=== PATIENT | female | born 1975 | race Caucasian/White ===

== ENCOUNTER 2016-11-07 14:29 | Outpatient (CLI) | payer MEDICAID ==
[~2016-11-07] VITALS: Ht 170.2 cm; Wt 79.0 kg
[2016-11-07 14:34] VITALS: Ht 170.2 cm; Wt 79.0 kg
[2016-11-07 14:35] VITALS: BP 121/76; PULSE 73; RESP 18
[2016-11-07] MEDS ORDERED: PRENAT PO (14:37)
[2016-11-07] MEDS ORDERED: FOLI-49 PO (14:37)
[2016-11-07] MEDS ORDERED: CALC600T11 PO (14:37)
[2016-11-07] MEDS ORDERED: FER325 PO (14:37)
--- NOTE | 2016-11-07 16:08 | RADRPT ---
PROCEDURE: Obstetrical ultrasound for biophysical profile CLINICAL INDICATION: Biophysical profile. . TECHNIQUE: Obstetrical ultrasound of the uterus for biophysical profile. Transabdominal views are obtained. COMPARISON: 11/04/2016 FINDINGS: Single intrauterine gestation. Presentation: Cephalic. Placenta: Fundal No evidence of placental abruption. No evidence of placenta previa. breathing movement = 2/2 tone = 2/2 motion = 2/2 TIM = 2/2 TIM = 11.7 cm heart rate: 154 beats per minute IMPRESSION: Single intrauterine gestation. Biophysical profile 10/11 RPTAT: AADD .Richi Kramer MD, MD Date Time Electronically viewed and signed by .Richi Kramer MD, on 11/07/2016 16:07 .B/
--- NOTE | 2016-11-07 16:29 | TRIAGE ---
OB Triage Datetime Report Generated by CPN: 11/07/2016 16:28 Datetime: 11/07/2016 16:00 Labor Evaluation Frequency: X2 Monitor Mode: External Duration (sec)2399: 50-60 Quality: Mild Pattern: Normal: <= 5 Contractions in 10 Minutes Resting Tone [place]: Relaxed Heart Rate FHR Baseline Rate: 125 Monitor Mode: External US FHR Baseline Changes: No Baseline Change Variability: Moderate 6-25 bpm Accelerations: 15X15 Decelerations: None Category: Category I Pain Assessment Pain Scale: 0 Pain Presence: None/Denies Pain Type: N/A Datetime: 11/07/2016 15:00 Labor Evaluation Frequency: 0 Monitor Mode: External Pattern: Normal: <= 5 Contractions in 10 Minutes Resting Tone [place]: Relaxed Heart Rate FHR Baseline Rate: 130 Monitor Mode: External US FHR Baseline Changes: No Baseline Change Variability: Moderate 6-25 bpm Accelerations: 15X15 Decelerations: None Category: Category I Pain Assessment Pain Scale: 0 Pain Presence: None/Denies Pain Type: N/A Datetime: 11/07/2016 14:33 Assessment Type: Triage Maternal Assessment Level of Consciousness: Fully Conscious DTR's/Clonus: DTRs 2+; No Clonus Headache: Denies Blurred Vision: No Respiratory Effort: Unlabored; Regular Rhythm Breath Sounds, Left: Clear and Equal Breath Sounds, Right: Clear and Equal Nausea/Vomiting: Denies RUQ Epigastric Pain: Denies Lower Extremities Edema: None Degree: None Upper Extremities Edema: None Degree: None Facial Edema: None Fall Risk Assessment History of Falling: (0) No Secondary Diagnosis: (0) No Ambulatory Aid: (0) Bedrest/Nurse Assist IV Therapy: (0) No Gait: (0) Normal/Bedrest/Immobile Mental Status: (0) Oriented to Own Ability Fall Score: 0 Fall Risk Score Definition: No Risk: No action required Datetime: 11/07/2016 14:31 Pain Assessment Pain Scale: 0 Pain Presence: None/Denies Pain Type: N/A Datetime: 11/07/2016 14:21 Time of Arrival: 11/07/2016 14:21 EGA: 36.3 Arrived By: Ambulatory Arrived From: Home Chief Complaint: PT PRESENTS TO TRIAGE FOR FOLLOW UP NST/BPP DUE TO DECELERATIONS Movement: Present Contractions: Denies/Absent Rupture of Membranes: Denies Vaginal Bleeding: None Vaginal Discharge: Denies Recent Sexual Intercouse: Denies Abdominal Trauma: Not Applicable Patient Complaints: None Additional Patient Complaints: PATIENT A1DM- PATIENT REPORTS LAST BLOOD SUGAR 103 POST LUNCH Time Provider Notified: 11/07/2016 14:42 Provider Notified: KIRSTIN Initial Plan: NST/CHRIS
--- NOTE | 2016-11-07 17:32 | QN ---
Documentation Comment ipu 30 weeks GDM vss exam wnl us wnl a/p iup 30 weeks GDM stable dc home NADINE SANTAMARIA MD Nov 07, 2016 17:32
== END 2016-11-07 16:24 | disposition home or self-care (01) ==
LOC: L-D 14:29 → OBT 14:29
PROVIDERS: ATTEND Obstetrics & Gynecology
DX: O24.419 Gestational diabetes mellitus in pregnancy, unspecified control (principal); Z3A.30 30 weeks gestation of pregnancy
CPT/HCPCS: 76818; Z7500; G0463

== ENCOUNTER 2016-11-29 08:00 | Inpatient (IN) | payer MEDICAID ==
[~2016-11-29] VITALS: Ht 165.1 cm; Wt 77.1 kg
[~2016-11-29 08:00] MED LIST: CALC600T24 PO; FER325 PO; FOLI-49 PO; PRENAT PO
[2016-11-29 08:49] VITALS: Ht 165.1 cm; Wt 77.1 kg
[2016-11-29 08:50] VITALS: BP 118/80; PULSE 79
[2016-11-29] MEDS ORDERED: HYDROCODONE/APAP (5/325) TAB PO PRN (09:00)
[2016-11-29] MEDS ORDERED: OXYTOCIN 30 UNITS/LR 500 ML IV SCH ×2 (09:00→19:30)
[2016-11-29] MEDS ORDERED: BUTORPHANOL 2 MG INJ IV PRN (09:00)
[2016-11-29] MEDS ORDERED: METHYLERGONOVINE 0.2 MG INJ IM PRN (09:00)
[2016-11-29] MEDS ORDERED: MISOPROSTOL 200 MCG TAB PR PRN (09:00)
[2016-11-29] MEDS ORDERED: IBUPROFEN 600 MG TAB PO PRN (09:00)
[2016-11-29] MEDS ORDERED: LACTATED RINGER'S 1,000 ML IV PRN (09:00)
[2016-11-29] MEDS ORDERED: LIDOCAINE 1% (MPF) 30 ML INJ INJ PRN (09:00)
[2016-11-29] MEDS ORDERED: OXYTOCIN 30 UNITS/LR 500 ML IV PRN (09:00)
[2016-11-29] MEDS ORDERED: CARBOPROST 250 MCG INJ IM PRN (09:00)
[2016-11-29 10:08] LABS: BASOPHILS % 0.5 % (0.0-2.0); EOSINOPHILS # 0.1 10^3/ul (0.0-0.5); HEMATOCRIT 43.4 % (37.0-47.0); HEMOGLOBIN 14.3 g/dl (12.0-16.0); LYMPHOCYTES # 1.4 10^3/ul (0.8-2.9); LYMPHOCYTES % 23.2 % (15.0-51.0); MEAN CORPUSCULAR HEMOGLOBIN 31.8 pg (29.0-33.0); MEAN CORPUSCULAR HGB CONC 32.9 g/dl (32.0-37.0); MEAN CORPUSCULAR VOLUME 96.4 fl (82.0-101.0); MEAN PLATELET VOLUME 11.3 fl (7.4-10.4); MONOCYTE # 0.6 10^3/ul (0.3-0.9); MONOCYTES % 10.3 % (0.0-11.0); NEUTROPHILS % 64.7 % (39.0-77.0); PLATELET COUNT 165 10^3/UL (140-415); RED CELL DISTRIBUTION WIDTH 12.8 % (11.5-14.5); WHITE BLOOD COUNT 6.2 10^3/ul (4.8-10.8)
[2016-11-29] MEDS: LACTATED RINGER'S 1,000 ML IV SCH ×4 (10:16→19:00)
[2016-11-29] MEDS: MISOPROSTOL 25 MCG CAPSULE PO SCH ×2 (10:17→14:11)
[2016-11-29 10:39] LABS: INR 0.91; PROTIME 12.3 Sec (12.2-14.2)
[2016-11-29 10:40] LABS: PARTIAL THROMBOPLASTIN TIME 29.5 Sec (25.0-35.0)
[2016-11-29] MEDS: DEXTROSE 5%-LR 1,000 ML IV SCH ×2 (11:08→20:30)
--- NOTE | 2016-11-29 12:08 | RADRPT ---
PROCEDURE: US OB. CLINICAL INDICATION: Size and dates , diabetes TECHNIQUE: Multiple sonographic images of the pelvis and gravid uterus were obtained. The images were reviewed on a PACS workstation. COMPARISON: US PELVIS 11/07/2016 FINDINGS: There is a single viable intrauterine gestation. Cardiac activity is present with 135 beats per min tyson. There is a vertex presentation. The placenta is posterior. There is no evidence for an abruption or placenta previa. There is a normal amount of amniotic fluid with an TIM = 9.7 cm. Measurements were made in order to determine age. The results are as follows: BPD =8.9 cm HC =32.9 cm AC =35.7 cm FL =7.3 cm Estimated gestational age of approximately 37 weeks and 5 days based on ultrasound measurements. Clinical age: 39 weeks and 4 days. The estimated date of delivery is 12/15/16, based on ultrasound measurements. The EFW = 3492 g, 45.6%, based on LMP age. RPTAT: AA IMPRESSION: Single viable intrauterine gestation of approximately 37 weeks and 5 days based on ultrasound measu rements. .Gustavo Boyce MD, MD Date Time Electronically viewed and signed by .Gustavo Boyce MD, on 11/29/2016 12:08 .S/
[2016-11-29 15:41] LABS: RAPID PLASMA REAGIN REACTIVE (NR)
--- NOTE | 2016-11-29 19:37 | HP ---
Date/Time of Note Date/Time of Note DATE: 11/29/16 TIME: 19:35 OB - History Hx of Present Chief Complaint: induction of labor Estimated Due Date: Dec 02, 2016 : 5 Para: 3 Spontaneous : 1 Therapeutic : 0 Care: Good Care Ultrasounds: Normal mid trimester US Obstetrical Complications: Gestational Diabetes Medical Complications: None Past Family/Social History * Past Medical, Surgical, Family and Obstetric Histories reviewed from chart. GBS Status: Negative OB Admission Exam Vital Signs Vital Signs Vital Signs Date Time Temp Pulse Resp B/P Pulse Ox O2 Delivery O2 Flow Rate FiO2 11/29/16 08:50 98.2 79 118/80 Physical Exam HEENT: WNL Heart: Rhythm Normal Lungs: Clear, Equal Abdomen: WNL Extremities: Normal Reflexes: Normal Cervical Dilatation: None Effacement: 25% Station: -2 Membranes: Intact Heart Rate: 130's Accelerations: Accelerations Present Decelerations: No Decelerations Varibility: Moderate Last 72 hourBlood Glucose Bedside Glucose - 72 Hours Test 11/29/16 12:00 11/29/16 14:03 11/29/16 16:02 11/29/16 17:57 Bedside Glucose 71mg/dL (70-220) 84mg/dL (70-220) 78mg/dL (70-220) 90mg/dL (70-220) Last 72 hours Lab Results CBC & BMP 11/29/16 09:00 OB Assessment/Plan Reason for admission: induction of labor Plan: Induction Induction Method: per Misoprostol Protocol ALEXANDRU FULTON MD Nov 29, 2016 19:37
[2016-11-30] MEDS: LACTATED RINGER'S 1,000 ML IV SCH ×6 (00:51→20:41)
[2016-11-30] MEDS: DEXTROSE 5%-LR 1,000 ML IV SCH ×3 (00:51→14:55)
[2016-11-30 04:35] LABS: BASOPHILS % 0.4 % (0.0-2.0); EOSINOPHILS % 0.4 % (0.0-7.0); HEMATOCRIT 41.9 % (37.0-47.0); HEMOGLOBIN 14.2 g/dl (12.0-16.0); LYMPHOCYTES # 1.4 10^3/ul (0.8-2.9); LYMPHOCYTES % 18.6 % (15.0-51.0); MEAN CORPUSCULAR HEMOGLOBIN 32.7 pg (29.0-33.0); MEAN CORPUSCULAR HGB CONC 33.9 g/dl (32.0-37.0); MEAN CORPUSCULAR VOLUME 96.5 fl (82.0-101.0); MEAN PLATELET VOLUME 10.3 fl (7.4-10.4); MONOCYTE # 0.6 10^3/ul (0.3-0.9); MONOCYTES % 8.2 % (0.0-11.0); NEUTROPHIL # 5.5 10^3/ul (1.6-7.5); PLATELET COUNT 150 10^3/UL (140-415); RED BLOOD COUNT 4.34 10^6/ul (4.20-5.40); RED CELL DISTRIBUTION WIDTH 12.5 % (11.5-14.5); WHITE BLOOD COUNT 7.6 10^3/ul (4.8-10.8)
[2016-11-30 04:56] LABS: ALBUMIN 3.1 g/dl (3.3-4.9); ALBUMIN/GLOBULIN RATIO 0.93; BILIRUBIN,INDIRECT 0.4 mg/dl (0-1.1); BILIRUBIN,TOTAL 0.4 mg/dl (0.2-1.3); CALCIUM 8.1 mg/dl (8.4-10.2); CREATININE 0.66 mg/dl (0.44-1.00); POTASSIUM 3.8 mmol/L (3.5-5.1); TOTAL PROTEIN 6.4 g/dl (6.1-8.1); URIC ACID 4.6 mg/dl (3.1-7.9)
[2016-11-30 07:27] LABS: ADD UMIC YES; UR ASCORBIC ACID NEGATIVE (NEGATIVE); UR BILIRUBIN (Dip) NEGATIVE (NEGATIVE); UR BLOOD (Dip) 3+ mg/dL (NEGATIVE); UR CLARITY SLIGHTLY CLOUDY (CLEAR); UR COLOR YELLOW (YELLOW); UR GLUCOSE (Dip) NEGATIVE (NEGATIVE); UR KETONES (Dip) NEGATIVE (NEGATIVE); UR LEUKOCYTE ESTERASE (Dip) 3+ Leu/ul (NEGATIVE); UR NITRITE (Dip) NEGATIVE (NEGATIVE); UR RBC 0 /HPF (0-5); UR SPECIFIC GRAVITY (Dip) 1.006 (1.003-1.030); UR SQUAMOUS EPITHELIAL CELL MODERATE /HPF (FEW); UR TOTAL PROTEIN (Dip) NEGATIVE (NEGATIVE); UR UROBILINOGEN (Dip) NEGATIVE (NEGATIVE)
--- NOTE | 2016-11-30 21:48 | LDN ---
Date/Time of Note Date/Time of Note DATE: 11/30/16 TIME: 21:42 Delivery Summary Weeks of Gestation 39 weeks Placenta Delivered: Spontaneously Meconium: none Episiotomy: No Perineal laceration: 1 Laceration repair: Second degree laceration repaired with 3-0 Vicryl Anesthesia type: Local Estimated blood loss: 200 Sponge & Needle done & correct: Yes All needle counts correct: Yes Any foreign bodies felt in the: No Problems: Delivery Information Sex Infant Sex: female Apgars 1 Minute: 8 5 Minute: 9 Suctioning Nose & mouth suctioned at evaristo: Yes Delee suction performed: No Umbilical Cord Umbilical cord with: 3 Vessels Cord presentations: no nuchal cord Cord Blood was obtained: Yes Mother & Baby Disposition Disposition Mom & Baby to Maternity; Good: Yes ALEXANDRU FULTON MD Nov 30, 2016 21:48
[2016-11-30 22:15] VITALS: BP 137/85; PULSE 76; RESP 18
[2016-11-30] MEDS ORDERED: BENZOCAINE 20% 56 ML SPRAY TOP PRN (23:00)
[2016-11-30] MEDS ORDERED: OXYTOCIN 30 UNITS/LR 500 ML IV PRN (23:00)
[2016-11-30] MEDS ORDERED: HYDROCODONE/APAP (5/325) TAB PO PRN (23:00)
[2016-11-30] MEDS ORDERED: WITCH HAZEL/GLYCERIN PAD PR PRN (23:00)
[2016-11-30] MEDS ORDERED: DIBUCAINE 1% 30 GM OINT PR PRN (23:00)
[2016-11-30] MEDS ORDERED: ACETAMINOPHEN 325 MG TAB PO PRN (23:00)
[2016-11-30] MEDS ORDERED: MISOPROSTOL 200 MCG TAB PR PRN (23:00)
[2016-11-30] MEDS ORDERED: CARBOPROST 250 MCG INJ IM PRN (23:00)
[2016-11-30] MEDS ORDERED: METHYLERGONOVINE 0.2 MG INJ IM PRN (23:00)
[2016-11-30] MEDS: IBUPROFEN 600 MG TAB PO SCH (23:18)
[2016-11-30 23:48] VITALS: BP 117/70; PULSE 85; RESP 18
[2016-11-30] MEDS: LACTATED RINGER'S 1,000 ML IV* SCH (23:56)
[2016-12-01 03:51] VITALS: BP 115/66; PULSE 80; RESP 18
[2016-12-01] MEDS: IBUPROFEN 600 MG TAB PO SCH ×3 (05:40→17:56)
[2016-12-01] MEDS: LACTATED RINGER'S 1,000 ML IV* SCH ×2 (06:43→14:43)
[2016-12-01 08:00] VITALS: BP 103/65; PULSE 65; RESP 16
[2016-12-01] MEDS ORDERED: INFLUENZA VIRUS VACCINE 0.5 ML (DISPENSING) IM* ONE (09:00)
[2016-12-01] MEDS: SENNA/DOCUSATE NA (8.6MG/50MG) TAB PO SCH ×2 (10:00→22:01)
[2016-12-01 10:23] LABS: BASOPHILS % 0.2 % (0.0-2.0); EOSINOPHILS # 0.1 10^3/ul (0.0-0.5); EOSINOPHILS % 0.4 % (0.0-7.0); HEMATOCRIT 37.9 % (37.0-47.0); HEMOGLOBIN 12.7 g/dl (12.0-16.0); LYMPHOCYTES # 1.4 10^3/ul (0.8-2.9); LYMPHOCYTES % 10.4 % (15.0-51.0); MEAN CORPUSCULAR HEMOGLOBIN 32.3 pg (29.0-33.0); MEAN CORPUSCULAR HGB CONC 33.5 g/dl (32.0-37.0); MEAN CORPUSCULAR VOLUME 96.4 fl (82.0-101.0); MEAN PLATELET VOLUME 10.9 fl (7.4-10.4); MONOCYTE # 0.9 10^3/ul (0.3-0.9); MONOCYTES % 6.9 % (0.0-11.0); NEUTROPHIL # 10.6 10^3/ul (1.6-7.5); NEUTROPHILS % 81.8 % (39.0-77.0); PLATELET COUNT 145 10^3/UL (140-415); RED BLOOD COUNT 3.93 10^6/ul (4.20-5.40); RED CELL DISTRIBUTION WIDTH 12.9 % (11.5-14.5); WHITE BLOOD COUNT 12.9 10^3/ul (4.8-10.8)
[2016-12-01 12:00] VITALS: BP 110/71; RESP 16
[2016-12-01 16:00] VITALS: BP 129/55; PULSE 76; RESP 16
--- NOTE | 2016-12-01 19:44 | DS ---
Date/Time of Note Date/Time of Note DATE: 12/01/16 TIME: 19:44 Obstetrical Discharge Record Final Diagnosis Final Diagnosis: Term delivered Vaginal Delivery Obstetrical Delivery: Spontaneous Complications Gestational Diabetes Induction: Yes Condition on Discharge Physical Assessment Voiding: Yes Bowel Movement: Yes Breast: Soft, non-tender, Filling Fundus: Firm Calf Tenderness: No Patient Condition: Stable ALEXANDRU FULTON MD Dec 01, 2016 19:44
[2016-12-01 20:05] VITALS: BP 117/87; PULSE 69; RESP 17
[2016-12-02] MEDS: IBUPROFEN 600 MG TAB PO SCH ×3 (00:15→12:00)
[2016-12-02 04:25] VITALS: BP 110/66; PULSE 53; RESP 18
[2016-12-02 08:00] VITALS: BP 126/81; PULSE 57; RESP 18
[2016-12-02] MEDS ORDERED: DIPHTH/TET/ACEL PERTUSS (ADULT) 0.5 ML VIAL IM* ONE (09:00)
[2016-12-02] MEDS: SENNA/DOCUSATE NA (8.6MG/50MG) TAB PO SCH (09:00)
[2016-12-03 14:21] LABS: FLUORESCENT TREPONEMAL AB NON-REACTIVE (NON-REACTIVE)
== END 2016-12-02 16:49 | disposition home or self-care (01) | DRG 775 ==
LOC: L-D 08:21 → PP1 11-30 22:18
PROVIDERS: ADMIT Obstetrics & Gynecology; ATTEND Obstetrics & Gynecology
PROC: 10E0XZZ Delivery of Products of Conception, External Approach (ICD-10-PCS; principal; 2016-11-30)
PROC: 0KQM0ZZ Repair Perineum Muscle, Open Approach (ICD-10-PCS; 2016-11-30)
PROC: 3E0234Z Introduction of Serum, Toxoid and Vaccine into Muscle, Percutaneous Approach (ICD-10-PCS; 2016-12-01)
DX: O24.429 Gestational diabetes mellitus in childbirth, unspecified control (principal); O70.9 Perineal laceration during delivery, unspecified; O09.523 Supervision of elderly multigravida, third trimester; Z3A.39 39 weeks gestation of pregnancy; Z37.0 Single live birth; Z23 Encounter for immunization
CPT/HCPCS: 76815; 80053; 81001; 82947; 82962; 84560; 85025; 85610; 85730; 86592; 86850; 86900; 86901; 87285; 87340; 90686; 90715; J0595; J2590; J7120; J7121